=== PATIENT | female | born 1965 | race African-American/Black ===

== ENCOUNTER 2016-10-05 18:27 | Emergency (ER) | payer OTHER | END 2016-10-05 20:58 | disposition home or self-care (01) | LOC: ER 18:27 | DX: Z03.89 Encounter for observation for other suspected diseases and conditions ruled out (principal); Z79.899 Other long term (current) drug therapy; F17.210 Nicotine dependence, cigarettes, uncomplicated | CPT/HCPCS: 36415; 80053; 81001; 85025; 87088 ==